=== PATIENT | female | born 2000 | race Hispanic/Latino ===

== ENCOUNTER 2021-05-04 20:18 | Emergency (ER) | payer OTHER ==
[~2021-05-04] VITALS: Ht 157.5 cm; Wt 63.0 kg
[2021-05-04] MEDS ORDERED: HYDR50TA70 PO (20:26)
[2021-05-04] MEDS ORDERED: [UNRECOGNIZED DRUG - CODE] PO (20:26)
[2021-05-05 00:07] LABS: ALBUMIN 3.7 GM/DL (3.2-5.2); ALT/SGPT 52 U/L (12-78); BILIRUBIN,TOTAL 0.2 MG/DL (0.2-1.0); BLOOD UREA NITROGEN 10 MG/DL (7-18); CALCIUM LEVEL 8.6 MG/DL (8.5-10.1); CARBON DIOXIDE LEVEL 28 MEQ/L (21-32); CHLORIDE LEVEL 108 MEQ/L (98-107); CREATININE FOR GFR 0.76 MG/DL (0.55-1.30); GLOMERULAR FILTRATION RATE > 60.0 (>60); GLUCOSE, FASTING 109 MG/DL (70-100); HCG, SERUM QUANTITATIVE < 1.0 MIU/ML; POTASSIUM SERUM 3.8 MEQ/L (3.5-5.1); SODIUM LEVEL 140 MEQ/L (136-145); TOTAL PROTEIN 7.7 GM/DL (6.4-8.2)
[2021-05-05 00:08] LABS: HEMATOCRIT 37.4 % (36.0-47.0); HEMOGLOBIN 12.4 g/dl (12.0-15.5); MEAN CORPUSCULAR HEMOGLOBIN 30.2 pg (27.0-33.0); MEAN CORPUSCULAR HGB CONC 33.2 g/dl (32.0-36.5); MEAN CORPUSCULAR VOLUME 91.2 fl (80.0-96.0); PLATELET COUNT, AUTOMATED 320 10^3/uL (150-450); WHITE BLOOD COUNT 8.9 10^3/uL (4.0-10.0)
--- NOTE | 2021-05-05 03:09 | REPVR ---
PROCEDURE INFORMATION: Exam: US Pelvis Complete, Transabdominal and US Pelvis, Transvaginal Exam date and time: 05/05/2021 1:56 AM Age: 21 years old Clinical indication: Menstruation abnormalities; Irregular menstruation; Additional info: Dub, passing clots TECHNIQUE: Imaging protocol: Real-time transabdominal and transvaginal pelvic ultrasound (complete) with image documentation. Transvaginal imaging was used for better evaluation of the endometrium, adnexa, and/or cervix. COMPARISON: No relevant prior studies available. FINDINGS: Uterus/cervix: The uterus measures 8.7 cm in its cephalocaudad dimension and 3.9 x 5.4 cm in its AP and lateral dimensions transabdominal. The endometrium measures 6 mm transabdominal and 5 mm transvaginal. The uterus measures 7.7 cm in its cephalocaudad dimension and 3.7 x 4.3 cm in its AP and lateral dimensions transvaginal. Right adnexa: The right ovary measures 2.6 x 1.6 x 1.7 cm and demonstrates normal Doppler waveforms and color flow. Left adnexa: The left ovary measures 1.6 x 2.3 x 1.3 cm and demonstrates normal Doppler waveforms and color flow. Intraperitoneal space: No intraperitoneal fluid. Urinary bladder: Normal. IMPRESSION: Negative pelvic sonogram. Electronically signed by: Nathan Edmonds On 05/05/2021 03:08:49 AM
[2021-05-05 03:45] VITALS: BP 138/88
== END 2021-05-05 03:54 | disposition home or self-care (01) ==
LOC: M ED 20:18
DX: N93.8 Other specified abnormal uterine and vaginal bleeding (principal); R10.2 Pelvic and perineal pain